=== PATIENT | male | born 1995 | race Caucasian/White ===

== ENCOUNTER → 2017-06-05 | Outpatient (CLI) | payer OTHER | END | disposition home or self-care (01) | LOC: RAD 09:55 → EDSEX 09:55 | PROVIDERS: ATTEND Physical Medicine & Rehabilitation | DX: R13.19 Other dysphagia (principal); R26.89 Other abnormalities of gait and mobility; G81.11 Spastic hemiplegia affecting right dominant side; S06.2X6S Diffuse traumatic brain injury with loss of consciousness greater than 24 hours without return to pre-existing conscious level with patient surviving, sequela; X58.XXXS Exposure to other specified factors, sequela | CPT/HCPCS: 74230 ==